=== PATIENT | male | born 1990 ===

== ENCOUNTER 2025-04-08 14:57 | Emergency (ER) | payer MEDICAID ==
[~2025-04-08] VITALS: Ht 195.6 cm; Wt 98.9 kg
[2025-04-08 15:12] VITALS: BP 157/105; PULSE 96; TEMP 97.9; O2SAT 98
[2025-04-08] MEDS ORDERED: CHLO25CA10 PO (15:19)
--- NOTE | 2025-04-08 15:22 | Physician Documentation ---
History of Present Illness ~ Stated Complaint: ETOH WITHDRAWAL Time Seen by MD: 15:16 HPI This is 34-year-old male who presents to the emergency department reporting that he is in alcohol withdrawal. He admits to heavy use of alcohol, although he will not specify exactly how much. He states I went on a binge, and then stopped drinking for the last 18 hours. He desires not to begin drinking again. Medication Reconciliation Allergies: Coded Allergies: No Known Allergies (Unverified , 04/08/25) Scheduled PRN Chlordiazepoxide Hcl (Librium), 2 CAP PO TID PRN for alcohol w/d Review of Systems ROS As stated above in the HPI, otherwise all systems are reviewed and negative. Physical Exam Physical Exam General: Alert, appears somewhat anxious. Neck: Full range of motion. Respiratory: Lungs clear, no respiratory distress. Chest: No accessory muscle use. Cardiovascular: Regular rate and rhythm, no murmurs. Gastrointestinal: Soft, nontender, nondistended. Bowels sounds present. Extremities: Normal range of motion, no deformity. Neurologic: Oriented x4. Tremulous. Psychiatric: Normal mood and affect. Skin: Normal color, warm and dry. No edema, no ecchymosis. Progress Results/Orders Results/Orders Completed Orders - BRITTANY LOUISE NP Chlordiazepoxide Capsule (Librium Capsul (04/08/25 15:15) Medications Received in ER Medications (Trade) Dose Ordered Sig/Braulio Route PRN Reason Start Time Stop Time Status Last Admin Dose Admin (Librium capsule) 50 mg ONCE ONCE PO 04/08/25 15:15 04/08/25 15:17 DC 04/08/25 15:28 50 MG Vital Signs 04/08/25 04/08/25 15:12 15:28 Temp 97.9 Pulse 96 Resp 18 16 B/P (MAP) 157/105 Pulse Ox 98 O2 Flow Rate 0 Medical Decision Making Additional information obtaine: family Findings has never been to this facility before. he is accompanied by a family member. Differential Dx:Considerations: Intoxication - ETOH, Intoxication - other drug, Sub. Abuse -continuous, Sub. Abuse-intermittent, Skull fracture, Fracture - other bone, Personality disorder, Closed head injury, Cervical spine injury, Abrasion, Confusion, Hematoma, Laceration, Foreign body, Dehydration, Encephalopathy, Hepatitis, Pancreatitis, Thiamine deficiency Additional Comment Discussed with the patient that alcohol withdrawal can be dangerous, and can cause seizures and . Patient does not desire to detox in the hospital. He requests medication to take home and plans to try not drinking at home. He will be sent home with a Librium, and instructed to take [id number] B12, folate, thiamine. He is to return immediately if worse. Departure Time of Disposition: 15:16 Disposition: 01 HOME / SELF CARE / HOMELESS Impression: Primary Impression: Alcoholic Additional Impression: Alcohol withdrawal Condition: Stable Discharge Instructions: Alcohol Abuse and Nutrition, Alcohol Use Disorder, Alcohol Withdrawal Syndrome Additional Instructions: Take the prescribed Librium three times a day as needed to avoid severe alcohol withdrawal. Return immediately if you are getting worse rather than better. 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 Referrals: NO PRIMARY CARE PROVIDER (PCP) Prescriptions Chlordiazepoxide Hcl (Librium) 25 Mg Capsule 2 CAP PO TID PRN for alcohol w/d for 3 Days, #18 CAP 0 Refills Prov: BRITTANY LOUISE NP 04/08/25 Education Educated: Patient, Family Educated regarding: diagnosis, treatment, prognosis, need for follow up Signature Scribe Signature: x Attestation: The note accurately reflects work and decisions made by me.Brittany Desir NP 04/08/25 15:22 BRITTANY LOUISE NP Apr 08, 2025 15:22
[2025-04-08 15:28] VITALS: RESP 16
== END 2025-04-08 15:45 | disposition home or self-care (01) ==
LOC: ER 14:58
DX: F10.239 Alcohol dependence with withdrawal, unspecified (principal); Y90.9 Presence of alcohol in blood, level not specified
CPT/HCPCS: 99283